=== PATIENT | male | born 1970 | race Two or more races ===

== ENCOUNTER → 2017-11-28 | Outpatient (CLI) | payer OTHER ==
[~2017-11-28] VITALS: Ht 170.2 cm; Wt 94.3 kg
[~2017-11-28] MED LIST: LIDOCAINE HCL 4% 50 ML SOLUTION TP ONE
[2017-11-28 08:36] VITALS: BP 122/77
== END | disposition home or self-care (01) ==
LOC: HBOWC 08:24
PROVIDERS: ATTEND Surgery Plastic and Reconstructive Surgery
DX: S31.819D Unspecified open wound of right buttock, subsequent encounter (principal); X58.XXXD Exposure to other specified factors, subsequent encounter
CPT/HCPCS: 11043

== ENCOUNTER → 2017-12-12 | Outpatient (CLI) | payer OTHER ==
[2017-12-12 08:54] VITALS: BP 116/68
== END | disposition home or self-care (01) ==
LOC: HBOWC 08:38
PROVIDERS: ATTEND Surgery Plastic and Reconstructive Surgery
DX: S31.819D Unspecified open wound of right buttock, subsequent encounter (principal); X58.XXXD Exposure to other specified factors, subsequent encounter
CPT/HCPCS: 11043

== ENCOUNTER → 2017-12-19 | Outpatient (CLI) | payer OTHER ==
[2017-12-19 09:06] VITALS: BP 133/73
== END | disposition home or self-care (01) ==
LOC: HBOWC 08:56
PROVIDERS: ATTEND Surgery Plastic and Reconstructive Surgery
DX: S31.819D Unspecified open wound of right buttock, subsequent encounter (principal); X58.XXXD Exposure to other specified factors, subsequent encounter
CPT/HCPCS: 11043

== ENCOUNTER → 2017-12-26 | Outpatient (CLI) | payer OTHER ==
[2017-12-26 10:34] VITALS: BP 130/79
== END | disposition home or self-care (01) ==
LOC: HBOWC 10:06
PROVIDERS: ATTEND Surgery Plastic and Reconstructive Surgery
DX: S31.819D Unspecified open wound of right buttock, subsequent encounter (principal); X58.XXXD Exposure to other specified factors, subsequent encounter
CPT/HCPCS: 11043

== ENCOUNTER → 2018-01-02 | Outpatient (CLI) | payer OTHER ==
[2018-01-02 10:32] VITALS: BP 142/66
== END | disposition home or self-care (01) ==
LOC: HBOWC 10:07
PROVIDERS: ATTEND Surgery Plastic and Reconstructive Surgery
DX: S31.819D Unspecified open wound of right buttock, subsequent encounter (principal); X58.XXXD Exposure to other specified factors, subsequent encounter

== ENCOUNTER → 2018-01-23 | Outpatient (CLI) | payer OTHER ==
[2018-01-23 10:30] VITALS: BP 139/79
== END | disposition home or self-care (01) ==
LOC: HBOWC 09:54
PROVIDERS: ATTEND Surgery Plastic and Reconstructive Surgery
DX: S31.819D Unspecified open wound of right buttock, subsequent encounter (principal); X58.XXXD Exposure to other specified factors, subsequent encounter